=== PATIENT | female | born 1980 | race Two or more races ===

== ENCOUNTER 2019-12-19 17:17 | Emergency (ER) | payer BC ==
[~2019-12-19] VITALS: Ht 152.4 cm; Wt 83.8 kg
[~2019-12-19 17:17] MED LIST: ONDA4TAB7 PO; OXYC1TAB15 PO
--- NOTE | 2019-12-19 18:07 | PHYS DOC ---
Past Medical History Past Medical History: Kidney Stone Past Surgical History: No Surgical History Smoking Status: Never Smoker Alcohol Use: Rarely Drug Use: None General Adult EDM: Chief Complaint: ABDOMINAL PAIN HPI: HPI: The history was obtained from the patient. Patient is a 39-year-old female with no reported PMH. Who presents with a chief complaint of left lower quadrant abdominal pain. Patient states she has had left lower quadrant abdominal pain that is been fairly constant over the past week. States it is cramping and bloating in nature and at times sharp. She has tried Tylenol and ibuprofen with minimal relief. She denies any nausea or vomiting. Denies any changes to her stool caliber or consistency. She denies any urinary symptoms including hematuria, dysuria, or polyuria. States her last menstrual period was 2 weeks ago. States she has had ovarian cyst in the past but does not think this is similar. Denies any vaginal bleeding or discharge. Denies syncope. States she has been able to eat and drink without difficulty. No other complaints. Review of Systems: Review of Systems: Constitutional: Denies fever or chills. [] Eyes: Denies change in visual acuity. [] HENT: Denies nasal congestion or sore throat. [] Respiratory: Denies cough or shortness of breath. [] Cardiovascular: Denies chest pain or edema. [] GI: Positive for abdominal pain : Denies dysuria. [] Musculoskeletal: Denies back pain or joint pain. [] Integument: Denies rash. [] Neurologic: Denies headache, focal weakness or sensory changes. [] Endocrine: Denies polyuria or polydipsia. [] Lymphatic: Denies swollen glands. [] Psychiatric: Denies depression or anxiety. [] Heart Score: Risk Factors: Risk Factors: DM, Current or recent (<one month) smoker, HTN, HLP, family history of CAD, obesity. Risk Scores: Score 0 - 3: 2.5% MACE over next 6 weeks - Discharge Home Score 4 - 6: 20.3% MACE over next 6 weeks - Admit for Clinical Observation Score 7 - 10: 72.7% MACE over next 6 weeks - Early Invasive Strategies Allergies: Allergies: Allergies Coded Allergies Type Severity Reaction Last Updated Verified No Known Drug Allergies 10/22/15 No Physical Exam: PE: Constitutional: Well developed, well nourished, no acute distress, non-toxic appearance. [] HENT: Normocephalic, atraumatic, bilateral external ears normal, oropharynx moist, no oral exudates, nose normal. [] Eyes: PERRLA, EOMI, conjunctiva normal, no discharge. [] Neck: Normal range of motion, no tenderness, supple, no stridor. [] Cardiovascular:Heart rate regular rhythm, no murmur [] Lungs & Thorax: Bilateral breath sounds clear to auscultation [] Abdomen: Mild reproducible left lower quadrant right lower quadrant tenderness to palpation. No voluntary guarding or rigidity noted. No acute peritonitis. : Pelvic exam chaperoned by Justino. Negative cervical motion tenderness. No vaginal discharge appreciated. Skin: Warm, dry, no erythema, no rash. [] Back: No tenderness, no CVA tenderness. [] Extremities: No tenderness, no cyanosis, no clubbing, ROM intact, no edema. [] Neurologic: Alert and oriented X 3, normal motor function, normal sensory function, no focal deficits noted. [] Psychologic: Affect normal, judgement normal, mood normal. [] Current Patient Data: Labs: Laboratory Tests Test 12/19/19 17:50 12/19/19 19:11 12/19/19 19:19 White Blood Count 7.7 x10^3/uL Red Blood Count 4.53 x10^6/uL Hemoglobin 12.9 g/dL Hematocrit 38.9 % Mean Corpuscular Volume 86 fL Mean Corpuscular Hemoglobin 29 pg Mean Corpuscular Hemoglobin Concent 33 g/dL Red Cell Distribution Width 14.2 % Platelet Count 381 x10^3/uL Neutrophils (%) (Auto) 58 % Lymphocytes (%) (Auto) 31 % Monocytes (%) (Auto) 7 % Eosinophils (%) (Auto) 3 % Basophils (%) (Auto) 1 % Neutrophils # (Auto) 4.5 x10^3/uL Lymphocytes # (Auto) 2.4 x10^3/uL Monocytes # (Auto) 0.5 x10^3/uL Eosinophils # (Auto) 0.3 x10^3/uL Basophils # (Auto) 0.1 x10^3/uL Sodium Level 140 mmol/L Potassium Level 4.0 mmol/L Chloride Level 103 mmol/L Carbon Dioxide Level 27 mmol/L Anion Gap 10 Blood Urea Nitrogen 14 mg/dL Creatinine 0.9 mg/dL Estimated GFR (Cockcroft-Gault) 70.5 BUN/Creatinine Ratio 16 Glucose Level 90 mg/dL Calcium Level 8.4 mg/dL Total Bilirubin 0.3 mg/dL Aspartate Amino Transf (AST/SGOT) 21 U/L Alanine Aminotransferase (ALT/SGPT) 27 U/L Alkaline Phosphatase 89 U/L Total Protein 7.4 g/dL Albumin 3.7 g/dL Albumin/Globulin Ratio 1.0 Lipase 67 U/L Urine Collection Type Unknown Urine Color Yellow Urine Clarity Clear Urine pH 5.5 Urine Specific [place] 1.025 Urine Protein Negative mg/dL Urine Glucose (UA) Negative mg/dL Urine Ketones (Stick) Negative mg/dL Urine Blood Trace Urine Nitrite Negative Urine Bilirubin Negative Urine Urobilinogen Dipstick 0.2 mg/dL Urine Leukocyte Esterase Negative Urine RBC 1-2 /HPF Urine WBC 1-4 /HPF Urine Squamous Epithelial Cells Many /LPF Urine Bacteria Many /HPF Urine Mucus Marked /LPF Bedside Urine HCG, Qualitative Hcg negative Current Medications Medications (Trade) Dose Ordered Sig/Yonathan Route PRN Reason Start Time Stop Time Status Last Admin Dose Admin Metoclopramide HCl (Reglan Vial) 10 mg 1X ONCE IVP 12/19/19 18:15 12/19/19 18:16 DC 12/19/19 18:18 Morphine Sulfate (Morphine Sulfate) 4 mg 1X ONCE IV 12/19/19 18:15 12/19/19 18:16 DC 12/19/19 18:19 Iohexol (Omnipaque 300 Mg/ml) 75 ml 1X ONCE IV 12/19/19 18:30 12/19/19 18:32 DC 12/19/19 19:35 Info (CONTRAST GIVEN -- Rx MONITORING) 1 each PRN DAILY PRN MC SEE COMMENTS 12/19/19 18:45 12/21/19 18:44 Vital Signs: Vital Signs Date Time Temp Pulse Resp B/P (MAP) Pulse Ox O2 Delivery O2 Flow Rate FiO2 12/19/19 17:38 98.3 88 16 151/80 (103) 100 98.3 EKG: EKG: [] Radiology/Procedures: Radiology/Procedures: [][facility] [address] [place] [address] IMAGING REPORT Signed PATIENT: MALACHI MENDOZA ACCOUNT: [id number] : 1980 LOCATION: ER AGE: 39 SEX: F EXAM STATUS: REG ER ORD. PHYSICIAN: CAROLE JEFFERS DO REASON: LLQ pain PROCEDURE: CT ABD PELV W/ IV CONTRST ONLY CT ABD PELV W/ IV CONTRST ONLY History: Reason: LLQ pain / Spl. Instructions: OMNI 300 INJ 75 MLS / History: Technique: After the administration of intravenous contrast, CT imaging was performed of the abdomen and pelvis. Multiplanar images are reviewed. Exposure: One or more of the following individualized dose reduction techniques were utilized for this examination: 1. Automated exposure control 2. Adjustment of the mA and/or kV according to patient size 3. Use of iterative reconstruction technique. Comparison: None Findings: Lower chest: No consolidation or pleural effusion. Abdomen and pelvis: The liver, spleen, adrenal glands, pancreas and gallbladder are unremarkable. No biliary ductal dilatation. Patent portal veins. Normal appearance of the kidneys. No hydronephrosis. Normal appendix. No evidence of bowel obstruction. Decompressed urinary bladder. No pathologic lymphadenopathy. No ascites. Left adnexal adjacent cysts or large cyst with thickened septation measures 4.7 x 3.4 cm and 4.8 x 3.3 cm separately. Collectively no lesions measure up to 7.4 cm craniocaudal. There is a thickened rind peripherally. Dilated tubular structure superior to the cystic lesion, may represent dilated fallopian tube. Bones: Osteitis condensans iliac. Impression: 1. Left adnexal cystic lesions with adjacent dilated tubular structure. Findings may represent ovarian cystic lesions with adjacent hydrosalpinx. Recommend ultrasound to further evaluate and exclude tubo-ovarian abscess. Electronically signed by: Davide Rodney DO (12/19/2019 7:59 PM) [facility] DICTATED and SIGNED BY: DAVIDE RODNEY DO DATE: 12/19/191958 [facility] [address] [place] [address] IMAGING REPORT Signed PATIENT: MALACHI MENDOZA ACCOUNT: [id number] : 1980 LOCATION: ER AGE: 39 SEX: F EXAM STATUS: REG ER ORD. PHYSICIAN: CAROLE JEFFERS DO REASON: eval for Left sided TOA PROCEDURE: TRANSVAGINAL Exam: Ultrasound pelvis Indication: Left lower quadrant pain Technique: Real-time grayscale and color Doppler images of the pelvis were obtained by the department supervisor abattoir. Comparisons: CT same day FINDINGS: Uterus measures 8.3 x 5.1 x 4.7 cm. Endometrium measures 12 mm in thickness. Right ovary is not visualized. Left ovary measures 7.2 x 6.3 x 6.1 cm. Vascular flow identified in the left ovary. No free fluid. IMPRESSION: Enlarged left ovary measuring 7.2 x 6.3 x 6.1 cm. Differential considerations include large hemorrhagic cyst which is favored. An ovarian abscess is possible however There is a discrete fluid component and no adjacent inflammatory changes or free fluid seen. In the absence of intervention short-term follow-up imaging to reassess is recommended. Electronically signed by: Jef Anderson MD (12/19/2019 9:37 PM) [id number] DICTATED and SIGNED BY: JEF ANDERSON MD DATE: 12/19/192136 Course & Med Decision Making: Course & Med Decision Making Pertinent Labs and Imaging studies reviewed. (See chart for details) Patient is a 39-year-old female presents with chief complaint of left lower quadrant abdominal discomfort. CT imaging revealed a masslike structure near the left ovary. Ultrasound was followed up with. She does have a 7 x 2 x 6 cm left ovarian cystic structure. Appropriate blood flow to the ovaries bilate rally. Differential hemorrhagic cyst versus abscess. Patient denies any sexual activity. Pelvic pain was benign without cervical motion tenderness. Labs without leukocytosis or anemia. Afebrile. I did discuss the case with COLLEGE SCOUTING COORDINATOR . He recommended outpatient follow-up. I did discuss results of labs and imaging in great detail the patient. Repeat abdominal exam her abdomen is benign. She has tolerated p.o. Vital signs been stable. She is agreeable to this plan. Return precautions discussed and understood. She was discharged home with ibuprofen. Stable for discharge home. Dragon Disclaimer: Dragon Disclaimer: This electronic medical record was generated, in whole or in part, using a voice recognition dictation system. Departure Departure Impression: Primary Impression: Left ovarian cyst Disposition: HOME, SELF-CARE Condition: GOOD Referrals: NO PCP (PCP) VIDA GIBBS Jr, MD Patient Instructions: Ovarian Cyst Additional Instructions: Please return the emergency department in 24 to 48 hours should her symptoms not improve or worsen. Please follow-up with COLLEGE SCOUTING COORDINATOR within the next 2 to 3 days. Scripts Ibuprofen (IBUPROFEN) 600 Mg Tablet 600 MG PO PRN Q6HRS PRN for PAIN, #20 TAB take with food or milk Prov: CAROLE JEFFERS DO 12/19/19 Justicifation of Admission Dx: Justifications for Admission: Justification of Admission Dx: N/A CAROLE JEFFERS DO Dec 19, 2019 18:07
[2019-12-19 18:15] LABS: BASO # 0.1 x10^3/uL (0.0-0.2); BASO % 1 % (0-3); EOS # 0.3 x10^3/uL (0.0-0.7); EOS % 3 % (0-3); HEMATOCRIT 38.9 % (36.0-47.0); HEMOGLOBIN 12.9 g/dL (12.0-15.5); LYMPH # 2.4 x10^3/uL (1.0-4.8); LYMPH % 31 % (24-48); MEAN CORPUSCULAR HEMOGLOBIN 29 pg (25-35); MEAN CORPUSCULAR HGB CONC 33 g/dL (31-37); MEAN CORPUSCULAR VOLUME 86 fL (79-100); MONO # 0.5 x10^3/uL (0.0-1.1); MONO % 7 % (0-9); NEUT # 4.5 x10^3/uL (1.8-7.7); NEUT % 58 % (31-73); PLATELET COUNT 381 x10^3/uL (140-400); RED BLOOD COUNT 4.53 x10^6/uL (3.50-5.40); RED CELL DISTRIBUTION WIDTH 14.2 % (11.5-14.5); WHITE BLOOD COUNT 7.7 x10^3/uL (4.0-11.0)
[2019-12-19] MEDS ORDERED: MORPHINE SULFATE 4 MG/ML VIAL. IV ONE (18:15)
[2019-12-19] MEDS ORDERED: METOCLOPRAMIDE HCL 10 MG/2 ML VIAL. IVP ONE (18:15)
[2019-12-19 18:22] LABS: CALCIUM 8.4 mg/dL (8.5-10.1); CREATININE 0.9 mg/dL (0.6-1.0); GFR 70.5
[2019-12-19 18:28] LABS: ALBUMIN 3.7 g/dL (3.4-5.0); TOTAL BILIRUBIN 0.3 mg/dL (0.2-1.0); TOTAL PROTEIN 7.4 g/dL (6.4-8.2)
[2019-12-19] MEDS ORDERED: IOHEXOL 300 MG/ML 100ML VIAL. IV ONE (18:30)
[2019-12-19] MEDS ORDERED: CONTRAST GIVEN. MC PRN (18:45)
[2019-12-19 19:21] LABS: BILIRUBIN,URINE NEGATIVE (NEG); CLARITY,URINE CLEAR; COLOR,URINE YELLOW; NITRITE,URINE NEGATIVE (NEG); PH,URINE 5.5 (<5.0-8.0); PROTEIN,URINE NEGATIVE (NEG-TRACE); UROBILINOGEN,URINE 0.2 mg/dL (0.2 mg/dL)
[2019-12-19 19:25] LABS: BACTERIA,URINE MANY /HPF (0-FEW); SQUAMOUS EPITHELIAL CELL,UR MANY /LPF
--- NOTE | 2019-12-19 20:02 | RAD ---
CT ABD PELV W/ IV CONTRST ONLY History: Reason: LLQ pain / Spl. Instructions: OMNI 300 INJ 75 MLS / History: Technique: After the administration of intravenous contrast, CT imaging was performed of the abdomen and pelvis. Multiplanar images are reviewed. Exposure: One or more of the following individualized dose reduction techniques were utilized for this examination: 1. Automated exposure control 2. Adjustment of the mA and/or kV according to patient size 3. Use of iterative reconstruction technique. Comparison: None Findings: Lower chest: No consolidation or pleural effusion. Abdomen and pelvis: The liver, spleen, adrenal glands, pancreas and gallbladder are unremarkable. No biliary ductal dilatation. Patent portal veins. Normal appearance of the kidneys. No hydronephrosis. Normal appendix. No evidence of bowel obstruction. Decompressed urinary bladder. No pathologic lymphadenopathy. No ascites. Left adnexal adjacent cysts or large cyst with thickened septation measures 4.7 x 3.4 cm and 4.8 x 3.3 cm separately. Collectively no lesions measure up to 7.4 cm craniocaudal. There is a thickened rind peripherally. Dilated tubular structure superior to the cystic lesion, may represent dilated fallopian tube. Bones: Osteitis condensans iliac. Impression: 1. Left adnexal cystic lesions with adjacent dilated tubular structure. Findings may represent ovarian cystic lesions with adjacent hydrosalpinx. Recommend ultrasound to further evaluate and exclude tubo-ovarian abscess. Electronically signed by: Davide Rodney DO (12/19/2019 7:59 PM) [facility]
--- NOTE | 2019-12-19 21:40 | RAD ---
Exam: Ultrasound pelvis Indication: Left lower quadrant pain Technique: Real-time grayscale and color Doppler images of the pelvis were obtained by the department machine rug cleaner. Comparisons: CT same day FINDINGS: Uterus measures 8.3 x 5.1 x 4.7 cm. Endometrium measures 12 mm in thickness. Right ovary is not visualized. Left ovary measures 7.2 x 6.3 x 6.1 cm. Vascular flow identified in the left ovary. No free fluid. IMPRESSION: Enlarged left ovary measuring 7.2 x 6.3 x 6.1 cm. Differential considerations include large hemorrhagic cyst which is favored. An ovarian abscess is possible however There is a discrete fluid component and no adjacent inflammatory changes or free fluid seen. In the absence of intervention short-term follow-up imaging to reassess is recommended. Electronically signed by: Jef Cox MD (12/19/2019 9:37 PM) [id number]
[2019-12-19 23:30] VITALS: BP 102/64
[2019-12-19] MEDS ORDERED: IBUP-1007 PO (23:31)
[2019-12-21 21:07] LABS: GC PROBE Negative (Negative)
== END 2019-12-19 23:46 | disposition home or self-care (01) ==
LOC: ER 17:17
DX: N83.292 Other ovarian cyst, left side (principal); R10.32 Left lower quadrant pain; R14.0 Abdominal distension (gaseous); Z87.442 Personal history of urinary calculi
CPT/HCPCS: 36415; 74177; 76830; 80053; 81001; 81025; 83690; 85025; 87086; 87491; 87591; 96374; 96375; 99285; J2270; J2765; Q0111; Q9967

== ENCOUNTER → 2019-12-30 | Outpatient (CLI) | payer BC ==
[2019-12-19 23:30] VITALS: BP 102/64
[~2019-12-30] MED LIST changes: +IBUP-1007 PO
[2019-12-30 10:21] LABS: BASO # 0.1 x10^3/uL (0.0-0.2); BASO % 1 % (0-3); EOS # 0.3 x10^3/uL (0.0-0.7); EOS % 3 % (0-3); HEMATOCRIT 39.4 % (36.0-47.0); HEMOGLOBIN 13.2 g/dL (12.0-15.5); LYMPH % 31 % (24-48); MEAN CORPUSCULAR HEMOGLOBIN 29 pg (25-35); MEAN CORPUSCULAR HGB CONC 34 g/dL (31-37); MEAN CORPUSCULAR VOLUME 85 fL (79-100); MONO # 0.6 x10^3/uL (0.0-1.1); MONO % 6 % (0-9); NEUT # 5.9 x10^3/uL (1.8-7.7); NEUT % 60 % (31-73); PLATELET COUNT 343 x10^3/uL (140-400); RED BLOOD COUNT 4.62 x10^6/uL (3.50-5.40); RED CELL DISTRIBUTION WIDTH 14.7 % (11.5-14.5); WHITE BLOOD COUNT 9.9 x10^3/uL (4.0-11.0)
[2019-12-30 10:59] LABS: FREE T4 0.96 ng/dL (0.76-1.46); THYROID STIM HORMONE (TSH) 4.674 uIU/mL (0.358-3.74)
[2019-12-30 20:08] LABS: PROLACTIN 22.2 ng/mL (4.8-23.3); TESTOSTERONE TOTAL 14 ng/dL (8-48)
== END | disposition home or self-care (01) ==
LOC: LAB 09:45
PROVIDERS: ATTEND Obstetrics & Gynecology
DX: N83.202 Unspecified ovarian cyst, left side (principal); N93.9 Abnormal uterine and vaginal bleeding, unspecified
CPT/HCPCS: 36415; 80061; 82627; 84146; 84403; 84439; 84443; 85025